=== PATIENT | female | born 1940 | race Caucasian/White ===

== ENCOUNTER 2016-10-17 19:22 | Emergency (ER) | payer MEDICARE, OTHER ==
[2016-10-17 19:33] VITALS: BP 194/78
[2016-10-17] MEDS ORDERED: hydrALAZINE IV* 20 MG/ML VIAL IV SLOW PU ONE (20:09)
[2016-10-17] MEDS ORDERED: amLODIPine TAB* 5 MG PO ONE (20:09)
--- NOTE | 2016-10-17 22:14 | ED ---
Sadaf Sifuentes Claudia, scribed for Getachew Hutchinson MD on 10/17/16 at 2020 . Hypertension - HPI Summary HPI Summary: 76 year old female presents to the ED with high BP as of this evening. Pt notes that she has been having intermittent SHELTON and has been recording her BP since Oct 05 and the systole has been in the 190s. Pt uses a wrist BP Cuff. Pt denies any current SHELTON, She also denies any blurry vision, CP, SOB, numbness, paresthesia, or slurred speech. Pt takes Isosorbide and Metoprolol for HTN. - History of Current Complaint Chief Complaint: EDHypertension Stated Complaint: HIGH BLOOD PRESSURE Time Seen by Provider: 10/17/16 20:06 Hx Obtained From: Patient, Family/Speech Language Pathology Assistant Onset/Duration: Started Minutes Ago, Resolved - Allergies/Home Medications Allergies/Adverse Reactions: Allergies Allergy/AdvReac Type Severity Reaction Status Date / Time Procaine [From Novocain] Allergy Intermediate Numbness Verified 03/23/16 12:28 Sulfamethoxazole Allergy Mild Rash Verified 03/23/16 12:28 w/Trimethoprim [From Bactrim] PMH/Surg Hx/FS Hx/Imm Hx Endocrine/Hematology History: Denies: Hx Diabetes, Hx Systemic Lupus Erythematosus Cardiovascular History: Reports: Hx Hypertension - ON MEDICATION, Other Cardiovascular Problems/Disorders - htn Denies: Hx Congestive Heart Failure Respiratory History: Reports: Hx Chronic Obstructive Pulmonary Disease (COPD), Other Respiratory Problems/Disorders - COPD GI History: Reports: Other GI Disorders - acid reflux History: Denies: Hx Dialysis, Hx Renal Disease Musculoskeletal History: Reports: Hx Osteoporosis, Other Musculoskeletal History - osteoarthritis Denies: Hx Rheumatoid Arthritis - Cancer History Cancer Type, Location and Year: right breast ca 96 Hx Chemotherapy: No - Surgical History Surgery Procedure, Year, and Place: hysterectomy. appendectomy. lumpectomy. right side masectomy Infectious Disease History: No Infectious Disease History: Denies: Traveled Outside the [place] in Last 30 Days - Family History Known Family History: Positive: Cardiac Disease, Respiratory Disease - COPD - Social History Occupation: Retired Lives: Alone Alcohol Use: None Hx Substance Use: No Substance Use Type: Reports: None Hx Tobacco Use: Yes - QUIT 8 YEARS AGO Smoking Status (MU): Former Smoker Review of Systems Constitutional: Negative Eyes: Negative ENT: Negative Negative: Chest Pain Negative: Shortness Of Breath Gastrointestinal: Negative Genitourinary: Negative Musculoskeletal: Negative Skin: Negative Neurological: Negative Psychological: Normal All Other Systems Reviewed And Are Negative: Yes Physical Exam Vital Signs On Initial Exam: Initial Vitals Temp Pulse Resp BP Pulse Ox 97.7 F 82 20 194/78 96 10/17/16 19:26 10/17/16 19:26 10/17/16 19:26 10/17/16 19:26 10/17/16 19:26 Diagnostics - Vital Signs Vital Signs Temp Pulse Resp BP Pulse Ox 10/17/16 19:26 97.7 F 82 20 194/78 96 - Laboratory Lab Statement: Any lab studies that have been ordered have been reviewed, and results considered in the medical decision making process. - EKG 19:43 Cardiac Rate: NL EKG Rhythm: Sinus Rhythm - 72 beats/min Hypertension Course/Dx - Course Assessment/Plan: She has been home and has had intermittent SHELTON and has taken her BP reading and has noticed they have been quite high. She has a wrist BP cuff compared to ours taken essentially simultaneously on the same arm the systole varies by 50 points. Her BP is currently 146/72, she feels fine and asymptomatic. BP in her PCP office is 140s and 150s systolic. She brought recent labs and creatinine is within nml limits. There is not accurate date or a BP that warrants further evaluation. She will get a large adult cuff automated that obtained BP on the upper arm, will obtain readings and follow-up with PCP. - Diagnoses Provider Diagnoses: HTN (hypertension) Discharge - Discharge Plan Condition: Good Disposition: HOME Patient Education Materials: Chronic Hypertension (ED) Referrals: Annie Hess MD [Primary Care Provider] - The documentation as recorded by the Sadaf aguilar Claudia accurately reflects the service I personally performed and the decisions made by me, Getachew Hutchinson MD.
== END 2016-10-17 21:06 | disposition home or self-care (01) ==
LOC: ED 19:22
DX: I10 Essential (primary) hypertension (principal); R51 Headache
CPT/HCPCS: 93005; 96374; 99282

== ENCOUNTER 2016-11-08 08:33 | Inpatient (IN) | payer MEDICARE, OTHER ==
[2016-11-08] MEDS ORDERED: NS 0.9% 1000 ML* 2,000 ML IV ONE (10:41)
[2016-11-08 11:22] LABS: Hematocrit 36 % (35-47); Hemoglobin 11.5 g/dl (12.0-16.0); Mean Corpuscular HGB Conc 32 g/dl (31-36); Mean Corpuscular Hemoglobin 26 pg (27-31); Mean Corpuscular Volume 82 fL (80-97); Mean Platelet Volume 8 um3 (7.4-10.4); Red Blood Count 4.43 10^6/ul (4.0-5.4); Red Cell Distribution Width 14 % (10.5-15); White Blood Count 7.6 10^3/ul (3.5-10.8)
--- NOTE | 2016-11-08 11:24 | RAD ---
INDICATION: Cough and shortness of breath. COMPARISON: Comparison is made with prior chest x-ray study from June 17, 2016. TECHNIQUE: AP and lateral views of the chest were obtained. FINDINGS: The heart is within normal limits in size. Mediastinal and hilar contours appear within normal limits. The lungs are underinflated. There is flattening of the diaphragms consistent with chronic obstructive pulmonary disease. There is a minimal linear density at the right lung base most consistent with a vascular shadow or less likely atelectasis. The lungs are otherwise clear. No pleural effusion is seen. IMPRESSION: FINDINGS CONSISTENT WITH COPD, NO EVIDENCE FOR ACUTE FINDING.
[2016-11-08 11:39] LABS: BUN/Creatinine Ratio 12.3 (8-20); Calcium 9.3 mg/dL (8.6-10.3); EGFR African American 113.7 (>60); EGFR Non-African American 88.4 (>60); Globulin 3.2 g/dL (2-4); Potassium 3.5 mmol/L (3.5-5.0); Total Bilirubin 0.3 mg/dL (0.2-1.0); Total Protein 7.2 g/dL (6.4-8.9)
[2016-11-08 11:40] LABS: Troponin I 0.01 ng/mL (<0.04)
[2016-11-08] MEDS ORDERED: Albuterol/Ipratropium NEB.SOL* Albuterol 2.5 MG/Ipratropium 0.5 MG 3 ML INH ONE (11:47)
[2016-11-08] MEDS ORDERED: methylPREDNISolone 125 MG* 2 ML VIAL IV ONE (11:49)
[2016-11-08] MEDS ORDERED: Acetaminophen TAB* 325 MG PO ONE (12:09)
[2016-11-08 12:27] LABS: PCO2 Arterial 71 mmHg (35-45)
[2016-11-08] MEDS ORDERED: Levofloxacin 500 MG IVPREMIX(* 500 MG/100 ML BAG IVPB ONE (13:47)
[2016-11-08] MEDS ORDERED: Enoxaparin(*) 40 MG/0.4 ML SYR SUBCUT SCH (15:00)
--- NOTE | 2016-11-08 16:20 | ED ---
Kalyan Sifuentes Matthew, scribed for Logan Eugene MD on 11/08/16 at 1143 . Shortness of Breath - HPI Summary HPI Summary: A 76 y/o female presents to the ED with SOB since 2-3 days ago. The patient saw her PCP a week ago and was started on amoxicillin. Her symptoms have not improved since starting the Abx. Associated symptoms include productive cough - yellow and back pain. The patient denies pedal edema, chest pain, decreased appetite, and vomiting. Her breathing worsens laying flat. The patient is on 2L of oxygen at rest and 3L with ambulation. The patient is on xeralto. PMHx includes CHF, COPD, AFib and leaky heart valve. - History of Current Complaint Chief Complaint: EDShortnessOfBreath Time Seen by Provider: 11/08/16 11:23 Hx Obtained From: Patient Onset/Duration: Gradual Onset, Lasting Days, Still Present Timing: Constant Current Severity: Moderate Dyspnea At: Rest Aggrevating Factors: Recumbent Position Alleviating Factors: Nothing Associated Signs & Symptoms: Cough (Productive) Related History: Obesity - Allergy/Home Medications Allergies/Adverse Reactions: Allergies Allergy/AdvReac Type Severity Reaction Status Date / Time Procaine [From Novocain] Allergy Intermediate Numbness Verified 11/08/16 08:52 Sulfamethoxazole Allergy Mild Rash Verified 11/08/16 08:52 w/Trimethoprim [From Bactrim] PMH/Surg Hx/FS Hx/Imm Hx Endocrine/Hematology History: Denies: Hx Diabetes, Hx Systemic Lupus Erythematosus Cardiovascular History: Reports: Hx Hypertension - ON MEDICATION, Other Cardiovascular Problems/Disorders - htn Denies: Hx Congestive Heart Failure Respiratory History: Reports: Hx Chronic Obstructive Pulmonary Disease (COPD), Other Respiratory Problems/Disorders - COPD GI History: Reports: Other GI Disorders - acid reflux History: Denies: Hx Dialysis, Hx Renal Disease Musculoskeletal History: Reports: Hx Osteoporosis, Other Musculoskeletal History - osteoarthritis Denies: Hx Rheumatoid Arthritis - Cancer History Cancer Type, Location and Year: right breast ca 96 Hx Chemotherapy: No - Surgical History Surgery Procedure, Year, and Place: hysterectomy. appendectomy. lumpectomy. right side masectomy - Immunization History Date of Tetanus Vaccine: unk Date of Influenza Vaccine: unk Infectious Disease History: No Infectious Disease History: Denies: Traveled Outside the [place] in Last 30 Days - Family History Known Family History: Positive: Cardiac Disease, Hypertension, Diabetes, Respiratory Disease - COPD - Social History Alcohol Use: None Hx Substance Use: No Substance Use Type: Reports: None Hx Tobacco Use: Yes - QUIT 8 YEARS AGO Smoking Status (MU): Former Smoker Review of Systems Constitutional: Negative Eyes: Negative ENT: Negative Cardiovascular: Negative Negative: Chest Pain Positive: Shortness Of Breath, Cough - productive Gastrointestinal: Negative Negative: Vomiting Genitourinary: Negative Positive: Myalgia - Back Pain . Negative: Edema Skin: Negative Neurological: Negative Psychological: Normal All Other Systems Reviewed And Are Negative: Yes Physical Exam - Summary Physical Exam Summary: The patient is obese in no acute distress. The skin has decreased turgor. HEENT: The head is normocephalic and atraumatic. The pupils are equal and reactive. The conjunctivae are clear and without drainage. Nares are patent and without drainage. Mouth reveals dry mucous membranes and the throat is without erythema and exudate. The external ears are intact. The ear canals are patent and without drainage. The tympanic membranes are intact. The patient has facial edema. Neck is supple with full range of motion and non-tender. There are no carotid bruits. There is no neck vein distension. Respiratory: Chest is non-tender. Diminished breath sounds. Dyspnea during exam. Cardiovascular: Heart is regular rate and rhythm. There is no murmur or rub auscultated. Pulses are symmetrical and equal. The patient has pitting edema of the LE. Abdomen: The abdomen is soft and non-tender. There are normal bowel sounds heard in all four quadrants and there is no organomegaly palpated. Musculoskeletal: There is no back pain noted. Extremities are non-tender with full range of motion. Cap refill 2+ sec. There is no peripheral edema or calf tenderness elicited. Neurological: Patient is alert and oriented to person, place and time. The patient has symmetrical motor strength in all four extremities. Cranial nerves are grossly intact. Deep tendon reflexes are symmetrical and equal in all four extremities. Psychiatric: The patient has an appropriate affect and does not exhibit any anxiety or depression. Triage Information Reviewed: Yes Vital Signs On Initial Exam: Initial Vitals Temp Pulse Resp BP Pulse Ox 98.7 F 81 16 146/62 89 11/08/16 08:40 11/08/16 08:40 11/08/16 08:40 11/08/16 08:40 11/08/16 08:40 Vital Signs Reviewed: Yes Diagnostics - Vital Signs Vital Signs Temp Pulse Resp BP Pulse Ox 11/08/16 08:40 98.7 F 81 16 146/62 89 - Laboratory Lab Results: Lab Results 11/08/16 Range/Units 11:13 WBC 7.6 (3.5-10.8) 10^3/ul RBC 4.43 (4.0-5.4) 10^6/ul Hgb 11.5 L (12.0-16.0) g/dl Hct 36 (35-47) % MCV 82 (80-97) fL MCH 26 L (27-31) pg MCHC 32 (31-36) g/dl RDW 14 (10.5-15) % Plt Count 188 (150-450) 10^3/ul MPV 8 (7.4-10.4) um3 Neut % (Auto) 75.3 (38-83) % Lymph % (Auto) 15.5 L (25-47) % Branch % (Auto) 7.5 (1-9) % Eos % (Auto) 1.4 (0-6) % Baso % (Auto) 0.3 (0-2) % Absolute Neuts (auto) 5.7 (1.5-7.7) 10^3/ul Absolute Lymphs (auto) 1.2 (1.0-4.8) 10^3/ul Absolute Monos (auto) 0.6 (0-0.8) 10^3/ul Absolute Eos (auto) 0.1 (0-0.6) 10^3/ul Absolute Basos (auto) 0 (0-0.2) 10^3/ul Absolute Nucleated RBC 0 10^3/ul Nucleated RBC % 0 Result Diagrams: 11/08/16 11:13 11/08/16 11:13 Lab Statement: Any lab studies that have been ordered have been reviewed, and results considered in the medical decision making process. - Radiology CXR Xray Interpretation: No Acute Changes - IMPRESSION: FINDINGS CONSISTENT WITH COPD, NO EVIDENCE FOR ACUTE FINDING. Radiology Interpretation Completed By: Radiologist - EKG 09:04 Cardiac Rate: NL - 80 bpm EKG Rhythm: Sinus Rhythm EKG Interpretation: Normal Page Re-Evaluation - Re-Evaluation First Eval Re-Evaluation Time: 13:48 Change: Improved Comment: The patient has mild improved, but is still not moving air. Will discusse the case with Dr. Borja for possible admission. Course/Dx - Course Assessment/Plan: A 76 y/o female presents to the ED with SOB since 2-3 days ago. She was recently seen by her PCP who prescribed her amoxicillin; however she has not had relief. Associated symptoms include productive cough - yellow and back pain. The patient denies pedal edema, chest pain, decreased appetite, and vomiting. Labs were reviewed. CO2 at 42. CXR shows no acute findings. Upon re-evaluation, the patient has minimal improvement of her SOB. Discussed the case with Dr. Borja who will admit the patient into his services. - Diagnoses Differential Diagnosis/HQI/PQRI: Positive: Bronchitis, CHF, COPD Exacerbation, [place], Pneumonia Provider Diagnoses: Acute exacerbation of chronic obstructive pulmonary disease (COPD), Acute dyspnea - Physician Notifications Discussed Care of Patient With: Dr. Borja (Hospitalist) at 13:50 -- Notified of patient's history and will evaluate the patient for possible admission. Discharge - Discharge Plan Condition: Stable Disposition: ADMITTED TO [facility] documentation as recorded by the Kalyan aguilar Matthew accurately reflects the service I personally performed and the decisions made by , Logan Eugene MD.
[2016-11-08] MEDS: Latanoprost 0.005%* 2.5 ml BTL BOTH EYES SCH (17:28)
[2016-11-08 18:00] LABS: Urine Bilirubin Negative (Negative); Urine Glucose 3+(>=500 mg/dL) (Negative); Urine Nitrite Negative (Negative)
[2016-11-08] MEDS: Mometasone/Formoter 200/5 MDI INH SCH (19:17)
--- NOTE | 2016-11-08 19:43 | HP ---
ADMISSION HISTORY AND PHYSICAL: DATE OF ADMISSION: 11/08/16 PRIMARY CARE PROVIDER: Dr. Hess. HEALTHCARE PROXY: Her daughter, Dione, and her son, Carroll. CODE STATUS: Full. SOURCE OF INFORMATION: History obtained from interview with the patient and review of medical record. RELIABILITY: Fair. HISTORY OF PRESENT ILLNESS: This is a 76-year-old female, past medical history of COPD, on home 2 to 3 L oxygen; atrial fibrillation; hypertension; hyperlipidemia who had been in her usual state of health until a week prior, developed sinus congestion associated with rhinorrhea and sinus drainage. She was seen by her primary care provider who started her on amoxicillin. However, over the last week, she had increased cough with minimal production of clear mucus. This morning, she had increasing production of yellow mucus, felt like she could not get comfortable associated with increasing shortness of breath for which she presented to the emergency room. She notes that she has been increasingly achy also over her right flank, which she attributes to increasing coughing over the last week. She has had subjective fevers associated with increasing shortness of breath; however, no urinary dysuria, frequency, or urgency. No nausea, vomiting, constipation, or diarrhea. She has had no sick contacts, but does note her grandchildren have been sick, although she has not had contact with them directly. There has been no changes in medications. In the emergency room, she was given IV steroids as well as several treatments with nebulizers. When seen by this author, she reports she felt her breathing was much improved, but still felt achy and generally not in her baseline. PAST MEDICAL HISTORY: 1. Hypertension. 2. Hyperlipidemia. 3. COPD, on 2 L of oxygen at rest and 3 L with exertion. 4. Chronic respiratory failure. 5. Atrial fibrillation, on Xarelto. 6. Right breast cancer with mastectomy in 1995. 7. Appendectomy, 1964. 8. Hysterectomy, 1970. MEDICATIONS: The patient brought in review: 1. Metoprolol 25 mg in the morning, 50 mg at night. 2. Isosorbide 60 mg daily. 3. Lasix 20 mg daily. 4. Xarelto 20 mg daily. 5. Klor-Con 20 mEq daily. 6. Lumigan 0.01% one drop each eye at bedtime. 7. Alphagan 1 drop twice daily. 8. Simvastatin 40 mg daily. 9. Spiriva inhaler 1 capsule daily. 10. Albuterol sulfate every 4 hours as needed for shortness of breath. 11. Saline nasal spray as needed. 12. Aleve as needed. ALLERGIES: SULFAMETHOXAZOLE with TRIMETHOPRIM as well as PROCAINE. FAMILY HISTORY: Reviewed and noncontributory to this admission. SOCIAL HISTORY: Former tobacco user, quit 12 years prior. Smoked 1.5 packs per year for 40 years. No alcohol. No illicits. REVIEW OF SYSTEMS: As per HPI. Otherwise, all other systems negative. PHYSICAL EXAMINATION GENERAL: Obese female sitting up on the side of the bed, interactive, talks in full sentences. No cardiopulmonary distress. VITAL SIGNS: When seen by this author, 131/90, heart rate 90, respiratory rate 16, 92% on 2 L nasal cannula, T-max in the emergency room 98.7. HEENT: Oropharynx is clear. Moist mucous membranes. Sclerae are anicteric. NECK: Has nonelevated JVD. No palpable cervical or supraclavicular lymphadenopathy. LUNGS: She has decreased lung sounds throughout without any adventitious lung sounds. HEART: She has an irregularly irregular heart rate with no appreciable murmurs. ABDOMEN: Soft, nontender, nondistended. EXTREMITIES: Warm and well perfused. She has 1+ lower extremity edema. NEUROLOGIC: She is alert and oriented x3. Cranial nerves II through XII are tested and intact. Gait not assessed. LABORATORY DATA AND DIAGNOSTIC STUDIES: Data reviewed. Notable for white blood cell count 7.6, hemoglobin 11.5, platelets 188. Chloride 94, bicarbonate 42, BUN 8, creatinine 0.65, glucose 116. BNP 122. Troponin 0.01. Arterial blood gas notable for pH of 7.31, PCO2 of 71, PO2 of 69 on 2 L nasal cannula. Data reviewed. Chest x-ray, impression: Findings consistent with COPD. No acute findings. EKG: Normal sinus rhythm, normal axis, normal intervals, Q wave anterior and inferior. No ST or T-wave changes. ASSESSMENT AND PLAN: A 76-year-old female, past medical history of chronic obstructive pulmonary disease or chronic respiratory failure, presenting with increasing shortness of breath in the setting of sinus congestion and cough over the last week. Shortness of breath suspect in the setting of chronic obstructive pulmonary disease exacerbation: She received IV steroids in the emergency room. We will continue tomorrow. Methylprednisolone 40 mg every 8 hours in conjunction with azithromycin 250 mg for 5 additional days. Continue with albuterol and ipratropium nebulizers as needed as well as Dulera which is not on her home medication list in addition to her Spiriva. Monitor for improvement. Elevated bicarbonate - in the absence of metabolic alkalosis. Suspect this is compensatory in the setting of hypercapnia which appears to be chronic. CPAP at night. Hold Lasix today to evaluate if there is a component of contraction alkalosis. Compensated heart failure, holding diuretics as indicated above. Atrial fibrillation: Rate controlled in the room. Rhythm controlled on EKG. Continue Xarelto as well as metoprolol as indicated above. DVT prophylaxis: Xarelto as indicated above. [id number]/CPS #: [id number] BENNIE
[2016-11-08] MEDS: Acetaminophen TAB* 325 MG PO PRN (19:54)
[2016-11-08] MEDS: Metoprolol Tartrate TAB* 50 mg PO SCH (19:58)
[2016-11-08] MEDS ORDERED: Metoprolol Tartrate TAB* 25 MG PO SCH (21:00)
[2016-11-08] MEDS: Albuterol/Ipratropium NEB.SOL* Albuterol 2.5 MG/Ipratropium 0.5 MG 3 ML INH PRN (22:38)
[2016-11-09] MEDS: Albuterol/Ipratropium NEB.SOL* Albuterol 2.5 MG/Ipratropium 0.5 MG 3 ML INH PRN ×2 (03:11→14:25)
[2016-11-09] MEDS ORDERED: Metoprolol Tartrate TAB* 50 mg PO SCH (09:00)
[2016-11-09] MEDS: Isosorbide Mononitrate ER TAB* 60 MG PO SCH (09:33)
[2016-11-09] MEDS: Atorvastatin* 20 MG TAB PO SCH (09:34)
[2016-11-09] MEDS: Azithromycin TAB* 250 MG PO SCH (09:34)
[2016-11-09] MEDS: PTO Brimonidine P 0.1%(NF) 1 DROP BTL BOTH EYES SCH (09:34)
[2016-11-09] MEDS: Mometasone/Formoter 200/5 MDI INH SCH ×2 (09:34→19:17)
[2016-11-09] MEDS: methylPREDNISolone SOD 40 MG* 1 ML VIAL IV SCH ×2 (09:34→17:11)
[2016-11-09] MEDS: Rivaroxaban TAB(*) 20 MG TAB PO SCH (09:34)
[2016-11-09] MEDS: Potassium Chlor TAB* 20 MEQ TAB.ER PO SCH (09:34)
[2016-11-09] MEDS: Metoprolol Tartrate TAB* 25 MG PO SCH (09:34)
[2016-11-09 15:32] LABS: BUN/Creatinine Ratio 18.6 (8-20); Calcium 9.3 mg/dL (8.6-10.3); EGFR African American 82.3 (>60)
[2016-11-09] MEDS: Latanoprost 0.005%* 2.5 ml BTL BOTH EYES SCH (17:10)
--- NOTE | 2016-11-09 18:17 | PN ---
Subjective Date of Service: 11/09/16 Interval History: Seen and examined this AM Feeling much better. Breathing is improved however desaturated to <90 and required 6 liters to maintain with easy ambulation Objective Active Medications: Acetaminophen (Tylenol Tab*) 650 mg PO Q6H PRN PRN Reason: PAIN Last Admin: 11/08/16 19:54 Dose: 650 mg Albuterol/Ipratropium (Duoneb Neb.Ira*) 1 neb INH [id number] AWAKE PRN PRN Reason: sob/wheexing Last Admin: 11/09/16 14:25 Dose: 1 neb Atorvastatin Calcium (Lipitor*) 20 mg PO DAILY [facility] Last Admin: 11/09/16 09:34 Dose: 20 mg Azithromycin (Zithromax Tab*) 250 mg PO DAILY [facility] Stop: 11/13/16 09:01 Last Admin: 11/09/16 09:34 Dose: 250 mg Brimonidine Tartrate (Alphagan P 0.1% (Nf)) 1 drop BOTH EYES DAILY [facility] Last Admin: 11/09/16 09:34 Dose: 1 drop Isosorbide Mononitrate (Imdur Er Tab*) 60 mg PO DAILY [facility] Last Admin: 11/09/16 09:33 Dose: 60 mg Latanoprost (Xalatan 0.005%*) 1 drop BOTH EYES QPM [facility] PRN Reason: Protocol Last Admin: 11/09/16 17:10 Dose: 1 drop Methylprednisolone Sodium Succinate (Solu-Medrol*) 40 mg IV Q8H [facility] Last Admin: 11/09/16 17:11 Dose: 40 mg Metoprolol Tartrate (Lopressor Tab*) 25 mg PO DAILY [facility] Last Admin: 11/09/16 09:34 Dose: 25 mg Metoprolol Tartrate (Lopressor Tab*) 50 mg PO BEDTIME [facility] Last Admin: 11/08/16 19:58 Dose: 50 mg Mometasone Furoate/Formoterol Fumar (Dulera 200/5 Mdi*) 2 puff INH BID [facility] Last Admin: 11/09/16 09:34 Dose: 2 puff Potassium Chloride (Klor Con Er Tab*) 20 meq PO DAILY [facility] Last Admin: 11/09/16 09:34 Dose: 20 meq Rivaroxaban (Xarelto (*)) 20 mg PO DAILY [facility] Last Admin: 11/09/16 09:34 Dose: 20 mg Vital Signs 11/09/16 11/09/16 14:26 15:54 Temperature 97.7 F Pulse Rate 72 74 Respiratory 15 Rate Blood Pressure 130/56 (mmHg) O2 Sat by Pulse 94 94 Oximetry Oxygen Devices in Use Now: Nasal Cannula - 2L at rest Appearance: NAD Eyes: No Scleral Icterus, PERRLA Ears/Nose/Mouth/Throat: Clear Oropharnyx, Mucous Membranes Moist Neck: NL Appearance and Movements; NL JVP, Trachea Midline Respiratory: Symmetrical Chest Expansion and Respiratory Effort, - - decreased but clear breath sounds Cardiovascular: RRR Abdominal: NL Sounds; No Tenderness; No Distention, No Hepatosplenomegaly Lymphatic: No Cervical Adenopathy Extremities: No Edema Skin: No Rash or Ulcers Neurological: Alert and Oriented x 3 Result Diagrams: 11/08/16 11:13 11/09/16 15:10 Additional Lab and Data: Lab Results 11/08/16 Range/Units 11:13 WBC 7.6 (3.5-10.8) 10^3/ul RBC 4.43 (4.0-5.4) 10^6/ul Hgb 11.5 L (12.0-16.0) g/dl Hct 36 (35-47) % MCV 82 (80-97) fL MCH 26 L (27-31) pg MCHC 32 (31-36) g/dl RDW 14 (10.5-15) % Plt Count 188 (150-450) 10^3/ul MPV 8 (7.4-10.4) um3 Neut % (Auto) 75.3 (38-83) % Lymph % (Auto) 15.5 L (25-47) % Haakon % (Auto) 7.5 (1-9) % Eos % (Auto) 1.4 (0-6) % Baso % (Auto) 0.3 (0-2) % Absolute Neuts (auto) 5.7 (1.5-7.7) 10^3/ul Absolute Lymphs (auto) 1.2 (1.0-4.8) 10^3/ul Absolute Monos (auto) 0.6 (0-0.8) 10^3/ul Absolute Eos (auto) 0.1 (0-0.6) 10^3/ul Absolute Basos (auto) 0 (0-0.2) 10^3/ul Absolute Nucleated RBC 0 10^3/ul Nucleated RBC % 0 Assess/Plan/Problems-Billing Assessment: 76 F admitted with COPD - Patient Problems (1) COPD (chronic obstructive pulmonary disease) Comment: c/w IV steroids, dulera, spiriva rescue inhalers azithromycin day 2 (2) Hypertension Comment: metorpolol (3) Atrial fibrillation Comment: metorpolol xarelto (4) Chronic respiratory failure Comment: home 2-3L requiring more with ambulation today in setting of COPD (5) DVT prophylaxis Comment: xarelto
[2016-11-09] MEDS: Acetaminophen TAB* 325 MG PO PRN (20:56)
[2016-11-09] MEDS: Metoprolol Tartrate TAB* 50 mg PO SCH (20:57)
[2016-11-10] MEDS: methylPREDNISolone SOD 40 MG* 1 ML VIAL IV SCH ×2 (00:25→08:48)
[2016-11-10] MEDS: Albuterol/Ipratropium NEB.SOL* Albuterol 2.5 MG/Ipratropium 0.5 MG 3 ML INH PRN (05:43)
[2016-11-10] MEDS: Isosorbide Mononitrate ER TAB* 60 MG PO SCH (08:47)
[2016-11-10] MEDS: PTO Brimonidine P 0.1%(NF) 1 DROP BTL BOTH EYES SCH (08:47)
[2016-11-10] MEDS: Potassium Chlor TAB* 20 MEQ TAB.ER PO SCH (08:47)
[2016-11-10] MEDS: Metoprolol Tartrate TAB* 25 MG PO SCH (08:48)
[2016-11-10] MEDS: Rivaroxaban TAB(*) 20 MG TAB PO SCH (08:48)
[2016-11-10] MEDS: Azithromycin TAB* 250 MG PO SCH (08:48)
[2016-11-10] MEDS: Atorvastatin* 20 MG TAB PO SCH (08:48)
[2016-11-10] MEDS: Mometasone/Formoter 200/5 MDI INH SCH (09:13)
[2016-11-10 11:49] VITALS: BP 140/51
--- NOTE | 2016-11-10 15:01 | DS ---
DISCHARGE SUMMARY: DATE OF ADMISSION: 11/08/16 DATE OF DISCHARGE: 11/10/16 PRIMARY CARE PROVIDER: Dr. Hess. PRIMARY DIAGNOSIS: Chronic obstructive pulmonary disease exacerbation. SECONDARY DIAGNOSES: 1. Chronic respiratory failure, on home 2 to 3 L of oxygen. 2. Hypertension. 3. Hyperlipidemia. 4. Atrial fibrillation, on Xarelto. 5. History of right breast cancer status post mastectomy in 1997. MEDICATIONS ON DISCHARGE: Includes: 1. Spiriva 1 cap inhaled daily. 2. Zocor 40 mg daily. 3. Xarelto 20 mg daily. 4. Potassium chloride 20 mEq daily. 5. Metoprolol tartrate 50 mg daily. 6. Imdur ER 60 mg daily. 7. Furosemide 20 mg in the morning. 8. Brimonidine 0.1% one drop both eyes daily. 9. Lumigan 1 drop both eyes in the evening. 10. Albuterol HFA inhaler as well as nebulizer every 4 to 6 hours as needed for shortness of breath. 11. Dulera 200/5 MDI 2 puffs twice daily. Please note new medication. 12. Prednisone taper 60 mg for 3 days and 40 mg for 3 days and 20 mg for 3 days. 13. Azithromycin 250 mg for 3 additional days. PERTINENT LABORATORY DATA: Arterial partial pressure CO2 on presentation 71. Serum bicarbonate on presentation was 42, decreased to 34. PERTINENT MICROBIOLOGY: Sputum was normal stan, negative influenza. Blood cultures no grown till date. PERTINENT IMAGING DATA: Chest x-ray. Impression: Findings consistent with COPD, no acute findings. ASSESSMENT AND PLAN: This is a 76-year-old female with a past medical history of chronic obstructive pulmonary disease with chronic respiratory failure, on home oxygen, had been in her usual state of health, developed increasing sinus congestion for which she was treated with antibiotics as an outpatient; however , developed increasing sputum production as well as shortness of breath, presented to the hospital, diagnosed with chronic obstructive pulmonary disease exacerbation, treated with steroids, as well as continued azithromycin. She improved over the next 48 hours. She was ambulated on the day of discharge, maintained O2 saturations greater than 90% on 2 to 3 L nasal cannula which is her baseline. She felt greatly improved on the day of discharge. There were no complications on the day of discharge. Of note, she was not on an inhaled steroid according to her home medication list which she provided. Dulera was started in the hospital, will be continued on discharge. At followup please; 1. Evaluate for continued respiratory stability on steroid taper. Of note, the patient did note she had mold in her trailer. She was referred to [facility]. While this is certainly consistent with COPD exacerbation, hypersensitivity pneumonitis should be considered if it is recurrent and recalcitrant, at which point she would benefit from bronchoscopic evaluation. 2. No other specific labs or vitals that need following. Reasons to return to the hospital included but not limited to worsening symptoms including shortness of breath, chest pain, increasing cough, fevers, chills, night sweats, nausea, vomiting, diarrhea, bleeding from any source, inability to obtain or tolerate her medications were discussed with the patient , she acknowledged understanding. Greater than 45 minutes was spent on the discharge of this patient, greater than half was spent [id number] with the patient. CC: Dr. Hess * [id number]/CPS #: [id number] MTDD
== END 2016-11-10 11:45 | disposition home or self-care (01) | DRG 191 ==
LOC: ED 08:33 → MED 14:04 → OBSVTOIN 11-09 10:40
PROVIDERS: ADMIT Internal Medicine; ATTEND Internal Medicine
PROC: 5A09357 Assistance with Respiratory Ventilation, Less than 24 Consecutive Hours, Continuous Positive Airway Pressure (ICD-10-PCS; principal; 2016-11-08)
DX: J44.1 Chronic obstructive pulmonary disease with (acute) exacerbation (principal); J96.12 Chronic respiratory failure with hypercapnia; Z99.81 Dependence on supplemental oxygen; I48.91 Unspecified atrial fibrillation; I10 Essential (primary) hypertension; E78.5 Hyperlipidemia, unspecified; Z79.01 Long term (current) use of anticoagulants; Z85.3 Personal history of malignant neoplasm of breast; Z79.1 Long term (current) use of non-steroidal anti-inflammatories (NSAID); Z79.899 Other long term (current) drug therapy; Z88.2 Allergy status to sulfonamides; Z88.8 Allergy status to other drugs, medicaments and biological substances; Z87.891 Personal history of nicotine dependence
CPT/HCPCS: 36415; 36600; 71020; 80048; 80053; 81003; 82803; 83605; 83880; 84484; 85025; 87040; 87070; 87205; 87502; 93005; 94640; 94660; 94760; 99283; A9270-GY; G0378; J1650; J1956; J2920; J2930

== ENCOUNTER 2017-11-06 12:58 | Emergency (ER) | payer MEDICARE, OTHER ==
[2017-11-06 14:39] LABS: ABS Basophils 0 10^3/ul (0-0.2); ABS Eosinophils 0.1 10^3/ul (0-0.6); ABS Lymphocytes 1.1 10^3/ul (1.0-4.8); ABS Monocytes 0.4 10^3/ul (0-0.8); ABS Neutrophils 2.4 10^3/ul (1.5-7.7); ABS Nucleated RBC 0 10^3/ul; Eosinophil % 3.4 % (0-6); Hematocrit 34 % (35-47); Hemoglobin 10.8 g/dl (12.0-16.0); Lymphocyte % 26.6 % (25-47); Mean Corpuscular HGB Conc 32 g/dl (31-36); Mean Corpuscular Hemoglobin 25 pg (27-31); Mean Corpuscular Volume 78 fL (80-97); Mean Platelet Volume 8 um3 (7.4-10.4); Nucleated Red Blood Cells % 0.1; Platelet Count 201 10^3/ul (150-450); Red Cell Distribution Width 16 % (10.5-15)
[2017-11-06 14:55] LABS: EGFR Non-African American 74.7 (>60)
--- NOTE | 2017-11-06 14:58 | RAD ---
HISTORY: Shortness of breath COMPARISONS: November 08, 2016 VIEWS: 4: Frontal dual-energy and lateral views of the chest. FINDINGS: CARDIOMEDIASTINAL SILHOUETTE: The cardiomediastinal silhouette is normal. DORENE: The dorene are normal. PLEURA: The costophrenic angles are sharp. No pleural abnormalities are noted. LUNG PARENCHYMA: There is hyperinflation with flattening of the diaphragm and expansion of the AP diameter of the chest. ABDOMEN: The upper abdomen is clear. There is no subphrenic gas. BONES AND SOFT TISSUES: Degenerative changes are noted. Surgical clips are noted in the left axilla. OTHER: None. IMPRESSION: HYPERINFLATION. NO ACTIVE CARDIOPULMONARY DISEASE.
[2017-11-06] MEDS ORDERED: Albuterol/Ipratropium NEB.SOL* Albuterol 2.5 MG/Ipratropium 0.5 MG 3 ML INH ONE (15:46)
[2017-11-06] MEDS ORDERED: guaiFENesin/CODIEN 100MG-10MG* 5 ML UDC PO ONE (15:46)
[2017-11-06 16:44] LABS: Urine Appearance Clear; Urine Blood Negative (Negative); Urine Color Yellow; Urine Ketones Negative (Negative); Urine Protein Negative (Negative); Urine Specific Gravity 1.011 (1.010-1.030); Urine Urobilinogen Negative (Negative)
[2017-11-06 18:46] VITALS: BP 127/63
--- NOTE | 2017-11-07 16:26 | ED ---
Christopher Sifuentes Nikita, scribed for Matty Fu MD on 11/06/17 at 1431 . Influenza-Like Illness - HPI Summary HPI Summary: This patient is a 77 year old F presenting to ED with a chief complaint of flu symptoms since 3 days ago. The patient rates the pain 8/10 in severity. Symptoms aggravated and alleviated by nothing. Patient reports SOB, productive cough with clear/yellow sputum, fever, chills, chest pain secondary to coughing , post-nasal drip, muscle aches. Pt has been on Abx for 3 days for ear infection. - History of Current Complaint Chief Complaint: EDFluSymptoms Time Seen by Provider: 11/06/17 14:03 Hx Obtained From: Patient Onset/Duration: Gradual Onset, Lasting Days, Still Present Severity: Moderate - 8/10 Associated Signs & Symptoms: Fever, Myalgia, Cough - Allergy/Home Medications Allergies/Adverse Reactions: Allergies Allergy/AdvReac Type Severity Reaction Status Date / Time Procaine [From Novocain] Allergy Intermediate Numbness Verified 11/08/16 08:52 Sulfamethoxazole Allergy Mild Rash Verified 11/08/16 08:52 w/Trimethoprim [From Bactrim] PMH/Surg Hx/FS Hx/Imm Hx Endocrine/Hematology History: Denies: Hx Diabetes, Hx Systemic Lupus Erythematosus Cardiovascular History: Reports: Hx Hypercholesterolemia, Hx Hypertension - ON MEDICATION, Other Cardiovascular Problems/Disorders - htn Denies: Hx Congestive Heart Failure Respiratory History: Reports: Hx Chronic Obstructive Pulmonary Disease (COPD), Hx Pneumonia, Hx Sleep Apnea, Other Respiratory Problems/Disorders - COPD GI History: Reports: Other GI Disorders - acid reflux History: Denies: Hx Dialysis, Hx Renal Disease Musculoskeletal History: Reports: Hx Osteoporosis, Other Musculoskeletal History - osteoarthritis Denies: Hx Rheumatoid Arthritis Sensory History: Reports: Hx Contacts or Glasses, Hx Glaucoma - bilateral Opthamlomology History: Reports: Hx Contacts or Glasses, Hx Glaucoma - bilateral Neurological History: Reports: Hx Migraine - 20 years ago - Cancer History Cancer Type, Location and Year: right breast ca 96 Hx Chemotherapy: No - Surgical History Surgery Procedure, Year, and Place: hysterectomy. appendectomy. lumpectomy. right side mastectomy. b/l cataracts removed - Immunization History Date of Tetanus Vaccine: unk Date of Influenza Vaccine: 09/02 Immunizations Up to Date: Yes Infectious Disease History: No Infectious Disease History: Denies: Traveled Outside the [place] in Last 30 Days - Family History Known Family History: Positive: Cardiac Disease, Hypertension, Diabetes, Respiratory Disease - COPD - Social History Alcohol Use: None Hx Substance Use: No Substance Use Type: Reports: None Hx Tobacco Use: Yes - QUIT 8 YEARS AGO Smoking Status (MU): Former Smoker Type: Cigarettes Length of Time of Smoking/Using Tobacco: 40 years Have You Smoked in the Last Year: No Review of Systems Positive: Fever, Chills Positive: Ear Ache, Other - post nasal drip, congestion Positive: Chest Pain Positive: Shortness Of Breath, Cough, Other - sinus pain Positive: Myalgia All Other Systems Reviewed And Are Negative: Yes Physical Exam - Summary Physical Exam Summary: VITAL SIGNS: Reviewed. GENERAL: ~Patient is an elderly and fragile female who is lying comfortable in the stretcher. She is speaking in full sentences. HEAD AND FACE: No signs of trauma. ~No ecchymosis, hematomas or skull depressions. No sinus tenderness. EYES: PERRLA, EOMI x 2, No injected conjunctiva, no nystagmus. EARS: Hearing grossly intact. Ear canals and tympanic membranes are within normal limits. MOUTH: Oropharynx within normal limits. Dry oral mucosa. NECK: Supple, trachea is midline, no adenopathy, no JVD, no carotid bruit, no c- spine tenderness, neck with full ROM. CHEST: Symmetric, no tenderness at palpation LUNGS: Wheezing bilaterally with decreased breath sounds. She is in no respiratory distress. CVS: Regular rate and rhythm, S1 and S2 present, no murmurs or gallops appreciated. ABDOMEN: Soft, non-tender. No signs of distention. No rebound no guarding, and no masses palpated. Bowel sounds are normal. EXTREMITIES: FROM in all major joints, no edema, no cyanosis or clubbing. NEURO: Alert and oriented x 3. No acute neurological deficits. Speech is normal and follows commands. SKIN: Dry and warm Triage Information Reviewed: Yes Vital Signs On Initial Exam: Initial Vitals Temp Pulse Resp BP Pulse Ox 97.1 F 76 22 139/66 97 11/06/17 13:03 11/06/17 13:03 11/06/17 13:03 11/06/17 13:03 11/06/17 13:03 Vital Signs Reviewed: Yes Diagnostics - Vital Signs Vital Signs Temp Pulse Resp BP Pulse Ox 11/06/17 14:20 72 9 126/66 97 11/06/17 14:16 76 98 11/06/17 13:03 97.1 F 76 22 139/66 97 - Laboratory Lab Results: Lab Results 11/06/17 11/06/17 11/06/17 Range/Units 14:30 14:30 14:30 WBC 4.0 (3.5-10.8) 10^3/ul RBC 4.30 (4.0-5.4) 10^6/ul Hgb 10.8 L (12.0-16.0) g/dl Hct 34 L (35-47) % MCV 78 L (80-97) fL MCH 25 L (27-31) pg MCHC 32 (31-36) g/dl RDW 16 H (10.5-15) % Plt Count 201 (150-450) 10^3/ul MPV 8 (7.4-10.4) um3 Neut % (Auto) 58.4 (38-83) % Lymph % (Auto) 26.6 (25-47) % Simpson % (Auto) 10.9 H (1-9) % Eos % (Auto) 3.4 (0-6) % Baso % (Auto) 0.7 (0-2) % Absolute Neuts (auto) 2.4 (1.5-7.7) 10^3/ul Absolute Lymphs (auto) 1.1 (1.0-4.8) 10^3/ul Absolute Monos (auto) 0.4 (0-0.8) 10^3/ul Absolute Eos (auto) 0.1 (0-0.6) 10^3/ul Absolute Basos (auto) 0 (0-0.2) 10^3/ul Absolute Nucleated RBC 0 10^3/ul Nucleated RBC % 0.1 Sodium 137 (133-145) mmol/L Potassium 3.8 (3.5-5.0) mmol/L Chloride 100 L (101-111) mmol/L Carbon Dioxide 33 H (22-32) mmol/L Anion Gap 4 (2-11) mmol/L BUN 8 (6-24) mg/dL Creatinine 0.75 (0.51-0.95) mg/dL Est GFR ( Amer) 96.1 (>60) Est GFR (Non-Af Amer) 74.7 (>60) BUN/Creatinine Ratio 10.7 (8-20) Glucose 93 (70-100) mg/dL Lactic Acid (0.5-2.0) mmol/L Calcium 9.0 (8.6-10.3) mg/dL Total Bilirubin 0.30 (0.2-1.0) mg/dL AST 19 (13-39) U/L ALT 11 (7-52) U/L Alkaline Phosphatase 60 (34-104) U/L C-Reactive Protein 21.99 H (< 5.00) mg/L B-Natriuretic Peptide 77 ( - 100) pg/mL Total Protein 7.2 (6.4-8.9) g/dL Albumin 3.8 (3.2-5.2) g/dL Globulin 3.4 (2-4) g/dL Albumin/Globulin Ratio 1.1 (1-3) Urine Color Urine Appearance Urine pH (5-9) Ur Specific [place] (1.010-1.030) Urine Protein (Negative) Urine Ketones (Negative) Urine Blood (Negative) Urine Nitrate (Negative) Urine Bilirubin (Negative) Urine Urobilinogen (Negative) Ur Leukocyte Esterase (Negative) Urine Glucose (Negative) Influenza A (Rapid) (Negative) Influenza B (Rapid) (Negative) 11/06/17 11/06/17 11/06/17 Range/Units 14:30 14:44 16:20 WBC (3.5-10.8) 10^3/ul RBC (4.0-5.4) 10^6/ul Hgb (12.0-16.0) g/dl Hct (35-47) % MCV (80-97) fL MCH (27-31) pg MCHC (31-36) g/dl RDW (10.5-15) % Plt Count (150-450) 10^3/ul MPV (7.4-10.4) um3 Neut % (Auto) (38-83) % Lymph % (Auto) (25-47) % Simpson % (Auto) (1-9) % Eos % (Auto) (0-6) % Baso % (Auto) (0-2) % Absolute Neuts (auto) (1.5-7.7) 10^3/ul Absolute Lymphs (auto) (1.0-4.8) 10^3/ul Absolute Monos (auto) (0-0.8) 10^3/ul Absolute Eos (auto) (0-0.6) 10^3/ul Absolute Basos (auto) (0-0.2) 10^3/ul Absolute Nucleated RBC 10^3/ul Nucleated RBC % Sodium (133-145) mmol/L Potassium (3.5-5.0) mmol/L Chloride (101-111) mmol/L Carbon Dioxide (22-32) mmol/L Anion Gap (2-11) mmol/L BUN (6-24) mg/dL Creatinine (0.51-0.95) mg/dL Est GFR ( Amer) (>60) Est GFR (Non-Af Amer) (>60) BUN/Creatinine Ratio (8-20) Glucose (70-100) mg/dL Lactic Acid 1.1 (0.5-2.0) mmol/L Calcium (8.6-10.3) mg/dL Total Bilirubin (0.2-1.0) mg/dL AST (13-39) U/L ALT (7-52) U/L Alkaline Phosphatase (34-104) U/L C-Reactive Protein (< 5.00) mg/L B-Natriuretic Peptide ( - 100) pg/mL Total Protein (6.4-8.9) g/dL Albumin (3.2-5.2) g/dL Globulin (2-4) g/dL Albumin/Globulin Ratio (1-3) Urine Color Yellow Urine Appearance Clear Urine pH 5.0 (5-9) Ur Specific [place] 1.011 (1.010-1.030) Urine Protein Negative (Negative) Urine Ketones Negative (Negative) Urine Blood Negative (Negative) Urine Nitrate Negative (Negative) Urine Bilirubin Negative (Negative) Urine Urobilinogen Negative (Negative) Ur Leukocyte Esterase Negative (Negative) Urine Glucose Negative (Negative) Influenza A (Rapid) Negative (Negative) Influenza B (Rapid) Negative (Negative) Result Diagrams: 11/06/17 14:30 11/06/17 14:30 Lab Statement: Any lab studies that have been ordered have been reviewed, and results considered in the medical decision making process. - Radiology CXR Radiology Interpretation Completed By: Radiologist - HYPERINFLATION. NO ACTIVE CARDIOPULMONARY DISEASE. ED physician has reviewed this radiology report. - EKG 1411 Cardiac Rate: NL EKG Rhythm: Sinus Rhythm - 72 BPM EKG Interpretation: q-wave in III and aVF, no ST elevations, normal axis. Re-Evaluation - Re-Evaluation First Eval Re-Evaluation Time: 16:37 Change: Improved Comment: Pt feels better and discharge plans were discussed. Flu Symptom Course/Dx - Course Assessment/Plan: This patient is a 77 year old F presenting to ED with a chief complaint of flu symptoms since 3 days ago. Test results are without significant abnormalities except slight decrease in the H&H, CRP is 21.9 probably secondary to her bronchitis. Urinalysis is negative for UTI, and influenza A and B is negative. In the ED course pt was given duoneb and robutussin AC and her symptoms have significantly improved .The pt is feeling better and will be discharged with instructions to follow up with PCP. She will be prescribed PROMETHAZINE with CODEINE for her cough and she will continue to take her abx. The pt is hemodynamically stable, alert and oriented x3. - Diagnoses Differential Diagnosis/HQI/PQRI: Positive: Bronchitis, Broncholiolitis, Pneumonia, Upper Respiratory Infection Provider Diagnoses: Bronchitis Discharge - Discharge Plan Condition: Stable Disposition: HOME Prescriptions: Promethazine W/Codeine [Promethazine/Codeine] 5 ml PO TID #90 ml MDD 15 ml Patient Education Materials: Acute Bronchitis (ED) Referrals: Annie Hess MD [Primary Care Provider] - 3 Days Additional Instructions: Return to the ED if symptoms worsens. The documentation as recorded by the Christopher aguilar Nikita accurately reflects the service I personally performed and the decisions made by , Matty Fu MD.
== END 2017-11-06 18:46 | disposition home or self-care (01) ==
LOC: ED 12:58
DX: J40 Bronchitis, not specified as acute or chronic (principal); R07.9 Chest pain, unspecified; H92.09 Otalgia, unspecified ear; R06.02 Shortness of breath; Z87.891 Personal history of nicotine dependence
CPT/HCPCS: 36415; 71046; 80053; 81003; 83605; 83880; 85025; 86140; 87040; 87502; 93005; 94640; 99283; A9270-GY

== ENCOUNTER 2019-03-10 16:16 | Emergency (ER) | payer MEDICARE, OTHER ==
[2019-03-10] MEDS ORDERED: methylPREDNISolone 125 MG* 2 ML VIAL IV ONE (19:08)
[2019-03-10] MEDS ORDERED: Albuterol 0.5% CONC NEB.SOL* 5 MG/ML 20 ml BOT INH ONE (19:08)
--- NOTE | 2019-03-10 19:44 | ED ---
Shortness of Breath - HPI Summary HPI Summary: Pt is a 78 y/o F presenting to the ED with a chief complaint of shortness of breath initially onset this past week, worsened on 03/07/19. She went to the PLANISHER at her PCPs office who did not think she had PNA but sent her home with abx and Prednisone anyway, and advised her to come to the ED if her breathing was not better. Her breathing temporarily becomes easier with nebulizer tx, but decreases in ease very quickly. She reports shortness of breath, bilateral rib and epigastric pain with cough, nonproductive cough, rhinorrhea, subjective fever, and decreased appetite. She has hx of COPD d/t being a former smoker, quit 16 years ago, that she uses O2 for. She usually uses 2L when sitting and 3L when walking. She denies any other medical problems, including DM and HTN. - History of Current Complaint Chief Complaint: EDShortnessOfBreath Time Seen by Provider: 03/10/19 19:09 Hx Obtained From: Patient Onset/Duration: Gradual Onset, Lasting Days, Still Present Current Severity: Moderate Dyspnea At: Rest Aggrevating Factors: Nothing Alleviating Factors: Bronchodilators Associated Signs & Symptoms: Cough (Nonproductive), Chest Pain w/Cough, Fever, Nasal Congestion - Allergy/Home Medications Allergies/Adverse Reactions: Allergies Allergy/AdvReac Type Severity Reaction Status Date / Time procaine [From Novocain] Allergy Numbness Verified 03/10/19 16:30 sulfamethoxazole Allergy Rash Verified 03/10/19 16:30 [From Bactrim] trimethoprim [From Bactrim] Allergy Rash Verified 03/10/19 16:30 Home Medications: Home Medications Albuterol HFA INHALER* [Ventolin HFA Inhaler*] 1 puff INH Q6H PRN 03/10/19 [ History Confirmed 03/10/19] DOXYcycline CAP(*) [DOXYcycline 100MG CAP(*)] 100 mg PO BID 03/10/19 [History Confirmed 03/10/19] Furosemide TAB* [Lasix TAB*] 40 mg PO EVERY OTHER DAY 03/10/19 [History Confirmed 03/10/19] Ipratropium 0.5MG/2.5ML NEB* [Atrovent 0.5 MG NEB.ALLISON*] 0.5 mg INH Q6H PRN 03/10 [History Confirmed 03/10/19] Salmeterol DISKUS (NF) [Serevent Diskus (NF)] 1 puff INH BID 03/10/19 [History Confirmed 03/10/19] predniSONE TAB* [Deltasone 20 MG TAB*] 40 mg PO DAILY 03/10/19 [History Confirmed 03/10/19] PMH/Surg Hx/FS Hx/Imm Hx Previously Healthy: Yes Endocrine/Hematology History: Denies: Hx Diabetes, Hx Systemic Lupus Erythematosus Cardiovascular History: Reports: Hx Hypercholesterolemia, Hx Hypertension - ON MEDICATION, Other Cardiovascular Problems/Disorders - htn Denies: Hx Congestive Heart Failure Respiratory History: Reports: Hx Chronic Obstructive Pulmonary Disease (COPD) - ON 2-3L O2 AT HOME, Hx Pneumonia, Hx Sleep Apnea, Other Respiratory Problems/ Disorders - COPD GI History: Reports: Other GI Disorders - acid reflux History: Denies: Hx Dialysis, Hx Renal Disease Musculoskeletal History: Reports: Hx Osteoporosis, Other Musculoskeletal History - osteoarthritis Denies: Hx Rheumatoid Arthritis Sensory History: Reports: Hx Contacts or Glasses, Hx Glaucoma - bilateral Opthamlomology History: Reports: Hx Contacts or Glasses, Hx Glaucoma - bilateral Neurological History: Reports: Hx Migraine - 20 years ago - Cancer History Cancer Type, Location and Year: right breast ca 96 Hx Chemotherapy: No - Surgical History Surgery Procedure, Year, and Place: hysterectomy. appendectomy. lumpectomy. right side mastectomy. b/l cataracts removed - Immunization History Date of Tetanus Vaccine: unk Date of Influenza Vaccine: 09/02 Infectious Disease History: No Infectious Disease History: Denies: Traveled Outside the [place] in Last 30 Days - Family History Known Family History: Positive: Cardiac Disease, Hypertension, Diabetes, Respiratory Disease - COPD - Social History Alcohol Use: None Hx Substance Use: No Substance Use Type: Reports: None Hx Tobacco Use: Yes Smoking Status (MU): Former Smoker Type: Cigarettes Length of Time of Smoking/Using Tobacco: 40 years Have You Smoked in the Last Year: No Review of Systems Positive: Fever, Other - decreased appetite Positive: Nasal Discharge Positive: Shortness Of Breath, Cough Positive: Myalgia - rib/epigastric pain w/ cough All Other Systems Reviewed And Are Negative: Yes Physical Exam - Summary Physical Exam Summary: Appearance: Obese elderly female lying in bed comfortably Skin: Warm, dry, no obvious rash Eyes: sclera anicteric, no conjunctival pallor ENT: mucous membranes moist, pharynx appears normal Neck: Supple, nontender Respiratory: Increased expiratory phase with morbidly diminished aeration and soft expiratory wheezes. There is no significant respiratory distress, but there s mild tachypnea with inability to finish her sentence. Cardiovascular: Normal S1, S2. No murmurs. Normal distal pulses in tibial and radial bilaterally. Abdomen: Soft, nontender, normal active bowel sounds present Musculoskeletal: Normal, Strength/ROM Intact Neurological: A&Ox3, awake and alert, mentation is normal, speech is fluent and appropriate Psychiatric: affect is normal, does not appear anxious or depressed Triage Information Reviewed: Yes Vital Signs On Initial Exam: Initial Vitals Temp Pulse Resp BP Pulse Ox 99.2 F 74 20 147/77 94 03/10/19 16:20 03/10/19 16:20 03/10/19 16:20 03/10/19 16:20 03/10/19 16:20 Vital Signs Reviewed: Yes Diagnostics - Vital Signs Vital Signs Temp Pulse Resp BP Pulse Ox 03/10/19 19:26 86 19 110/60 94 03/10/19 19:00 68 20 97 03/10/19 18:58 70 22 120/62 97 03/10/19 18:52 73 95 03/10/19 17:46 98.3 F 68 16 124/54 100 03/10/19 16:20 99.2 F 74 20 147/77 94 - Laboratory Result Diagrams: 03/10/19 20:03 03/10/19 20:03 Lab Statement: Any lab studies that have been ordered have been reviewed, and results considered in the medical decision making process. - Radiology CXR Radiology Interpretation Completed By: ED Physician Summary of Radiographic Findings: No acute process. Pending official radiology report. - EKG 1909 Cardiac Rate: NL - 66bpm EKG Rhythm: Sinus Rhythm ST Segment: Normal Ectopy: PVCs Summary of EKG Findings: EKG at 1909 shows NSR at 66bpm with 1 PVC and no STEMI. Course/Dx - Course Course Of Treatment: Pt is a 78 y/o F presenting to the ED with a chief complaint of shortness of breath initially onset this past week, worsened on . She's currently on abx and Prednisone Rx'ed by her PCP for possible PNA but she states they have not helped. Additionally, her nebulizer tx only briefly help. She reports shortness of breath, bilateral rib and epigastric pain with cough, nonproductive cough, rhinorrhea, subjective fever, and decreased appetite. She has hx of COPD d/t being a former smoker, quit 16 years ago, that she uses O2 for. She usually uses 2L when sitting and 3L when walking. She denies any other medical problems, including DM and HTN. The pt's physical exam reveals increased expiratory phase with morbidly diminished aeration and soft expiratory wheezes. There is no significant respiratory distress, but theres mild tachypnea with inability to finish her sentence. Pt' s hematology shows Hgb of 10.9 and MCH of 25. EKG at 1910 shows NSR at 66bpm with 1 PVC and no STEMI. The patient's chest x-ray does not show any acute infiltrates, perhaps a small degree of atelectasis at the left base. On reevaluation, the patient states she feels somewhat better after her continuous neb treatment. She looks generally well, is in no significant respiratory distress at this point. Lungs auscultation reveals good aeration with some expiratory wheezing and sounds better than when I first saw her. I had a long discussion with the patient regarding options of hospitalization versus continue home care. She is only been on the prednisone since yesterday and I believe with continued treatment at home she may be able to avoid hospitalization. The patient is amenable to this approach, and understands she may need to come back if she worsens or does not significantly improved after another day or 2 continue treatment. I did ask her to increase the frequency of her nebulizer treatments. Otherwise her regimen will be unchanged. - Diagnoses Provider Diagnoses: COPD (chronic obstructive pulmonary disease) Discharge - Sign-Out/Discharge Documenting (check all that apply): Patient Departure Patient Received Moderate/Deep Sedation with Procedure: No - Discharge Plan Condition: Good Disposition: HOME Patient Education Materials: COPD (Chronic Obstructive Pulmonary Disease) (ED) Referrals: Annie Hess MD [Primary Care Provider] - Additional Instructions: Continue the medications that your primary care doctor prescribed. I feel confident that you will improve over the next day or 2, but if not we should see you back here. Certainly if you are worsening in the meantime I would want to see you back here sooner - Billing Disposition and Condition Condition: GOOD Disposition: Home - Attestation Statements Document Initiated by Scribe: Yes Documenting Scribe: Martina Real Provider For Whom Karel is Documenting (Include Credential): Hansel Funes MD. Scribe Attestation: Martina Sifuentes, [email or web address] for Hansel Funes MD. on 03/14/19 at 0425. Scribe Documentation Reviewed: Yes Provider Attestation: The documentation as recorded by the celiaibe, Martina Real accurately reflects the service I personally performed and the decisions made by me, Hansel Funes MD. Status of Scribe Document: Viewed
[2019-03-10 20:14] LABS: ABS Lymphocytes 1.3 10^3/ul (1.0-4.8); ABS Monocytes 0.7 10^3/ul (0-0.8); Eosinophil % 0.1 %; Hematocrit 35 % (35-47); Hemoglobin 10.9 g/dL (12.0-16.0); Mean Corpuscular HGB Conc 32 g/dL (31-36); Mean Corpuscular Hemoglobin 25 pg (27-31); Mean Corpuscular Volume 80 fL (80-97); Mean Platelet Volume 8.2 fL (7.4-10.4); Platelet Count 266 10^3/uL (150-450); Red Blood Count 4.32 10^6 /uL (3.70-4.87); Red Cell Distribution Width 15 % (10.5-15); White Blood Count 6.9 10^3/uL (3.5-10.8)
[2019-03-10 20:30] LABS: Albumin 3.9 g/dL (3.2-5.2); Albumin/Globulin Ratio 1.3 (1-3); BUN/Creatinine Ratio 14.8 (8-20); Calcium 9.3 mg/dL (8.6-10.3); EGFR African American 82.5 (>60); EGFR Non-African American 68.2 (>60); Globulin 3.1 g/dL (2-4); Potassium 4.2 mmol/L (3.5-5.0); Total Bilirubin 0.4 mg/dL (0.2-1.0)
[2019-03-10 20:32] LABS: Troponin I 0.01 ng/mL (<0.04)
[2019-03-10 21:03] VITALS: BP 128/53
== END 2019-03-10 21:35 | disposition home or self-care (01) ==
LOC: ED 16:16
DX: J44.9 Chronic obstructive pulmonary disease, unspecified (principal); I10 Essential (primary) hypertension; E78.00 Pure hypercholesterolemia, unspecified; M81.0 Age-related osteoporosis without current pathological fracture; Z88.4 Allergy status to anesthetic agent; Z88.2 Allergy status to sulfonamides; Z88.8 Allergy status to other drugs, medicaments and biological substances; Z79.899 Other long term (current) drug therapy; Z99.81 Dependence on supplemental oxygen; Z85.3 Personal history of malignant neoplasm of breast; Z87.891 Personal history of nicotine dependence
CPT/HCPCS: 36415; 71046; 80053; 83605; 84484; 85025; 87040; 93005; 96374; 99283; J2930; J7611